=== PATIENT | female | born 1950 ===

== ENCOUNTER 2022-02-08 17:34 | Emergency (ER) | payer OTHER ==
--- OUTSIDE RECORDS SUMMARY | 2022-02-08 17:36 | XMS REPORT | Continuity of Care Document ---
:1950 Author Organization [facility] t Address [address] [place] [address] Dr. Goodson [address] [place] [address] Care Team Providers Name Role Phone JAVIER Attending Clinician Unavailable JAMES Attending Clinician Unavailable ALIA, KASSY Attending Clinician Unavailable Lab, Fam Pob I Attending Clinician Unavailable Moriah Madrigal Attending Clinician Moriah VEGA Attending Clinician Unavailable Doctor Unassigned, Name Attending Clinician Unavailable JAMES Admitting Clinician Unavailable Payers Payer Name Policy Type Policy Number Effective Date Expiration Date S ource [employer] MEDICARE PPO [id number] 2016 00:00:00 [employer] MEDICARE ADV [id number] 2016 00:00:00 Problems Condition Condition Condition Status Onset Resolution Last Treating Co mments Source Name Details Category Date Date Treatment Clinician Date No known No known Disease Unive rs active active ity of problems problems [facility] Allergies, Adverse Reactions, Alerts Allergy Allergy Status Severity Reaction(s) Onset Inactive Treating Comm ents Source Name Type Date Date Clinician NO KNOWN Drug Active Univers ALLERGIE Class ity of S [facility] Social History Social Habit Start Date Stop Date Quantity Comments Source Exposure to Not sure [facility] SARS-CoV-2 [facility] (event) [place] Sex Assigned At Universit y of [facility] Tobacco use and 2018-12-27 2018-12-27 Never used Universit y of exposure 00:00:00 00:00:00 [facility] Alcohol intake 2018-12-27 2018-12-27 Current drinker of Un iversity of 00:00:00 00:00:00 alcohol (finding) [facility] Tobacco Comment 2017-03-02 2017-03-02 Quit 38 years ago Un iversity of 00:00:00 00:00:00 [facility] Alcohol Comment 2017-03-02 2017-03-02 occasional Universit y of 00:00:00 00:00:00 [facility] Smoking Status Start Date Stop Date Source Former smoker 2018-12-27 00:00:00 2018-12-27 00:00:00 Universi ty of [facility] Medications Ordered Filled Start Stop Current Ordering Indication Dosage Frequency Signature Comments Components Source Medication Medication Date Date Medication? Clinician (SIG) Name Name methylPREDN Yes Univer s ISolone 4 4-25 ity of mg tablets 00:00: [facility] methylPREDN Yes Univer s ISolone 4 4-25 ity of mg tablets 00:00: [facility] azithromyci Yes Univer s n 250 mg 4-23 ity of tablet 00:00: [facility] benzonatate Yes Univer s 100 mg 4-23 ity of capsule 00:00: [facility] azithromyci Yes Univer s n 250 mg 4-23 ity of tablet 00:00: [facility] benzonatate Yes Univer s 100 mg 4-23 ity of capsule 00:00: [facility] BYSTOLIC 10 Yes Univer s mg tablet 4-19 ity of 00:00: [facility] BYSTOLIC 10 Yes Univer s mg tablet 4-19 ity of 00:00: [facility] amitriptyli 0 Yes Univer s ne 10 mg 4-02 ity of tablet 00:00: [facility] amitriptyli 0 Yes Univer s ne 10 mg 4-02 ity of tablet 00:00: [facility] ALPRAZolam 0 Yes TAKE 1 Unive rs 0.25 mg 2-22 TABLET BY ity of tablet 00:00: MOUTH 3 TIMES A Medical DAY IF Branch NEEDED FOR ANXIETY ALPRAZolam Yes TAKE 1 Unive rs 0.25 mg 2-22 TABLET BY ity of tablet 00:00: MOUTH 3 TIMES A Medical DAY IF Branch NEEDED FOR ANXIETY chlorhexidi Yes USE Univ ers ne 0.12 % 2-13 DIRECTED ity of mouthwash 00:00: [facility] chlorhexidi 0 Yes USE Univ ers ne 0.12 % 2-13 DIRECTED ity of mouthwash 00:00: 00 [facility] Er Procedures This patient has no known procedures. Encounters Start End Encounter Admission Attending Care Care Encounter Source Date/Time Date/Time Type Type Clinicians Facility Department ID 2021-04-12 Outpatient JAVIER [facility] [id number] [place] 16:48:17 [facility] 2022-01-26 2022-01-[address] [facility] [id number] [place] 00:00:00 00:00:00 NADIM 589 Method i 2022-01-24 2022-01-24 Outpatient JAMES [facility] [id number] [place] 00:00:00 00:00:00 NADIM 901 Method i 2021-04-23 2021-04-23 Outpatient R ALIA BERTHA [facility] [id number] Univers 14:00:00 14:00:00 [id number] ity [facility] 2021-04-23 2021-04-23 Outpatient R ALIA [facility] [id number] Univers 14:00:00 14:00:00 ity [facility] 2020-11-25 2020-11-25 Outpatient R [facility] [id number] Univers 13:45:00 13:45:00 [id number] ity [facility] 2020-11-25 2020-11-25 Outpatient R [facility] [id number] Univers 13:45:00 13:45:00 ity [facility] 2020-11-21 2020-11-21 Laboratory Lab, Adc [facility] Pob I [facility] [id number] Univers 13:39:26 13:59:26 Only Alexys Vega [facility] [id number] ity [facility] [id number] [place] Professio [phone] [place] [address] [address] 2020-11-21 2020-11-21 Outpatient R [facility] [id number] Univers 13:40:00 13:40:00 [id number] ity [facility] 2020-11-21 2020-11-21 Outpatient R GARY [facility] [id number] Univers 13:40:00 13:40:00 ALEXYS john f [facility] 2020-11-21 2020-11-21 Letter Doctor AMARA [id number] Univers 00:00:00 00:00:00 (Out) Unassigned, CELE[place] [id number] ity of [place] [facility] [id number] [place] as [phone] [address] Results Test Description Test Time Test Comments Results Result Comments Source SARS-CoV-2 (COVID-19) RNA [Presence] in Respiratory sp ecimen by 2022-01-24 17:38:58 SAVANNAH with probe detection Test Item Value Reference Range Interpretation Comme nts SARS-CoV-2 (COVID-19) RNA [Presence] in Respiratory specimen by Not detected SAVANNAH with probe detection (test code = 37462-9) Whether patient is employed in a healthcare setting (test code = Un known 12071-4) Whether the patient has symptoms related to condition of interest U nknown (test code = 78405-9) Whether the patient was hospitalized for condition of interest Unkn own (test code = 46760-9) Whether the patient was admitted to intensive care unit (ICU) for U nknown condition of interest (test code = 56474-7) Whether patient resides in a congregate care setting (test code = U nknown 30693-0) status (test code = 84436-0) Unknown Date and time of symptom onset (test code = 43332-4) Unknown
[2022-02-08] MEDS ORDERED: dilTIAZem HCL 25 MG/5 ML VIAL IV ONE (17:48)
[2022-02-08 18:02] LABS: Absolute Lymphocytes (CBC) 2.6 K/uL (0.7-4.9); Hematocrit 36.9 % (36.0-45.0); Lymphocytes % 41.9 % (15.3-44.8); MPV 8.9 fL (7.6-11.3); RBC Red Blood Cell Count 3.87 M/uL (3.86-4.86)
[2022-02-08 18:03] LABS: Protime INR 0.95
--- NOTE | 2022-02-08 18:14 | RAD REPORT ---
EXAM DESCRIPTION: RAD - Chest Single View - 02/08/2022 6:07 pm CLINICAL HISTORY: PALPITATIONS Chest pain. COMPARISON: Chest Pa And Lat (2 Views) dated 12/31/2017; CHEST SINGLE VIEW dated 05/21/2012; CHEST PA AND LAT 2 VIEW dated 02/15/2008; CHEST PA AND LAT 2 VIEW dated 12/18/1998 FINDINGS: Portable technique limits examination quality. The lungs are mildly emphysematous but grossly clear. The heart is normal in size. No displaced fract ures. IMPRESSION: Mild diffuse COPD.
[2022-02-08 18:23] LABS: Magnesium 2.3 mg/dL (1.8-2.4); Potassium 4.5 mmol/L (3.5-5.1)
--- NOTE | 2022-02-08 19:06 | ER ---
Nurse's Notes [facility] Name: Ofelia Dalton Age: 71 yrs Sex: Female : 1950 Arrival Date: 02/08/2022 Time: 17:35 Bed 5 Private MD: Amalia Cabrera C; Addison Hoover S Diagnosis: Supraventricular tachycardia Presentation: 02/08 17:50 Chief complaint: Patient states: had a cardiac ablation 2 weeks ago, today started iw having palpitations, heart rate is 130, was sent by Dr. Cabrera for eval. Coronavirus screen: At this time, the client does not indicate any symptoms associated with coronavirus-19. Ebola Screen: Patient negative for fever greater than or equal to 101.5 degrees Fahrenheit, and additional compatible Ebola Virus Disease symptoms Patient denies exposure to infectious person. Patient denies travel to an Ebola-affected area in the 21 days before illness onset. No symptoms or risks identified at this time. Initial Sepsis Screen: Does the patient meet any 2 criteria? No. Patient's initial sepsis screen is negative. Does the patient have a suspected source of infection? No. Patient's initial sepsis screen is negative. Risk Assessment: Do you want to hurt yourself or someone else? Patient reports no desire to harm self or others. Onset of symptoms was February 08, 2022. 17:50 Method Of Arrival: Wheelchair iw 17:50 Acuity: BLADE 2 iw Triage Assessment: 18:00 General: Appears in no apparent distress. Behavior is calm, cooperative, appropriate jh6 for age. Respiratory: the patient has mild shortness of breath. 18:00 Pain: Denies pain. jh6 18:05 General: Appears. 6 Historical: - Allergies: 18:06 No Known Allergies; jh6 - PMHx: 18:06 Supraventricular tachycardia; jh6 - Immunization history:: Adult Immunizations up to date. - Social history:: Smoking status: Patient denies any tobacco usage or history of. Screenin:00 Abuse screen: Denies threats or abuse. jh6 18:00 Nutritional screening: No deficits noted. Tuberculosis screening: No symptoms or risk 6 factors identified. Fall Risk Secondary diagnosis (15 points) STV WITH HYPOTENSION. Assessment: 18:00 General: Appears in no apparent distress. comfortable, Behavior is calm, cooperative. jh6 18:00 Pain: Denies pain. Neuro: No deficits noted. Cardiovascular: Capillary refill < 3 jh6 seconds Patient's skin is warm and dry. Rhythm is SVT. Respiratory: No deficits noted. Airway is patent Respiratory effort is even, unlabored, Respiratory pattern is regular. 18:44 Reassessment: No changes from previously documented assessment. Patient denies pain at jh6 this time. Respiratory: No deficits noted. Breath sounds are clear. 19:15 Reassessment: Patient appears in no apparent distress at this time. Patient is alert, lp1 oriented x 3, equal unlabored respirations, skin warm/dry/pink. Patient aware of pending discharge, Reports plan with follow up with Integration Assistant tomorrow Patient denies pain at this time. Patient states feeling better. Patient states symptoms have improved. 20:15 Reassessment: Patient appears in no apparent distress at this time. Patient is alert, lp1 oriented x 3, equal unlabored respirations, skin warm/dry/pink. Patient expresses readiness for discharge; Walked with patient around ED department, denied chest pain, shortness of breath, dizziness, weakness; Pulse oximeter with pulse of 68 while walking, O2 at 97% RA. Vital Signs: 17:50 BP 97 / 65; Pulse 130; Resp 18; Temp 97.6; Pulse Ox 100% on R/A; Weight 52.16 kg; jh6 Height 5 ft. 5 in. (165.10 cm); Pain 0/10; 18:00 BP 93 / 62; Pulse 44; Resp 18; Pulse Ox 100% ; jh6 18:30 BP 92 / 38; Pulse 40; Resp 17; Pulse Ox 100% on 2 lpm NC; jh6 19:15 BP 115 / 60; Pulse 50; Resp 15; Pulse Ox 99% on R/A; Pain 0/10; lp1 19:30 BP 100 / 58; Pulse 42; Resp 20; Pulse Ox 100% on R/A; lp1 19:45 BP 91 / 57; Pulse 41; Resp 18; Pulse Ox 100% on R/A; lp1 20:18 BP 104 / 75; Pulse 66; Resp 18; Pulse Ox 97% on R/A; lp1 17:50 Body Mass Index 19.14 (52.16 kg, 165.10 cm) jh6 20:18 While back in room after walking with patient lp1 Vitals: 18:00 Cardiac Rhythm Assessment Regular Sinus [place] W/PAC's. [facility] ED Course: 17:35 Patient arrived in ED. as 17:35 Amalia Cabrera MD is Private Physician. as 17:35 Dashawn Ferguson MD is Private Physician. as 17:35 Addison Hoover MD is Private Physician. as 17:46 [facility] jr8 17:46 Stefano Ashley MD is Attending Physician. [facility] 17:51 Triage completed. iw 17:51 Arm band placed on. iw 17:55 EKG done, by ED staff, reviewed by Stefano Ashley MD. Inserted saline lock: 20 gauge in [facility] right antecubital area, using aseptic technique. Blood collected. 18:02 Shwetha Villalpando, LEANDRO is Primary Nurse. [facility] 18:09 XRAY Chest (1 view) In Process Unspecified. EDKS 18:19 Bed in low position. Call light in reach. Side rails up X2. [facility] 19:05 Andrew Cabrera MD is Referral Physician. sp3 19:32 No provider procedures requiring assistance completed. lp1 20:21 IV discontinued, No redness/swelling at site. Pressure dressing applied. lp1 Administered Medications: 17:50 Drug: Cardizem (diltiazem) 10 mg Route: IVP; Site: right antecubital; [facility] 18:11 Follow up: Response: Cardiac rhythm changed [facility] Outcome: 19:06 Discharge ordered by MD. sp3 20:21 Discharged to home ambulatory, with significant other. lp1 20:21 Condition: good 20:21 Discharge instructions given to patient, significant other, Instructed on discharge instructions, follow up and referral plans. Demonstrated understanding of instructions, follow-up care. 20:21 Patient left the ED. lp1 Signatures: Dispatcher [employer] EDMS Obdulia Hamilton Irene, LEANDRO RN Lia Constantino RN RN lp1 Reuben Martin PA PA [facility] Stefano Ashley MD MD sp3 Shwetha Villalpando, LEANDRO RN [facility] Corrections: (The following items were deleted from the chart) 20:21 20:18 BP 104 / 75; Pulse 66bpm; Resp 18bpm; Pulse Ox 97% RA; lp1 lp1
--- NOTE | 2022-02-08 19:06 | EDPHYS ---
Physician Documentation [facility] Name: Ofelia Dalton Age: 71 yrs Sex: Female : 1950 Arrival Date: 02/08/2022 Time: 17:35 Bed 5 Private MD: Amalia Cabrera C; Addison Hoover S ED Physician Stefano Ashley HPI: 02/08 17:58 This 71 yrs old Female presents to ER via Wheelchair with complaints of Palpitations, sp3 Shortness Of Breath. 17:58 89-year-old female presents to the ED referred by her primary care physician for SVT. sp3 Patient had a cardiac ablation done at the [facility] approximately 2 weeks ago and has not had any complications since then. Patient today missed her initial Bystolic dose and consumed 2 cups of coffee after which she noticed her heart rate was elevated. She was not able to contact her leadite heater after which she presented to her PCPs office Dr. Cabrera who advised her to return to the ED here for treatment. Patient does have an appointment with her local leadite heater in the morning. She stated that she has had mild chest pressure during the SVT but otherwise no pain, shortness of breath, back pain, nausea, vomiting, diarrhea, or any other ROS at this time.. Historical: - Allergies: 18:06 No Known Allergies; jh6 - PMHx: 18:06 Supraventricular tachycardia; 6 - Immunization history:: Adult Immunizations up to date. - Social history:: Smoking status: Patient denies any tobacco usage or history of. ROS: 18:01 Constitutional: Negative for fever, chills, and weight loss, Eyes: Negative for injury, sp3 pain, redness, and discharge, ENT: Negative for injury, pain, and discharge, Neck: Negative for injury, pain, and swelling, Respiratory: Negative for shortness of breath, cough, wheezing, and pleuritic chest pain, Abdomen/GI: Negative for abdominal pain, nausea, vomiting, diarrhea, and constipation, Back: Negative for injury and pain, MS/Extremity: Negative for injury and deformity, Skin: Negative for injury, rash, and discoloration, Neuro: Negative for headache, weakness, numbness, tingling, and seizure, Psych: Negative for depression, anxiety, suicide ideation, homicidal ideation, and hallucinations, Allergy/Immunology: Negative for hives, rash, and allergies, Endocrine: Negative for neck swelling, polydipsia, polyuria, polyphagia, and marked weight changes. 18:01 All other systems are negative. Exam: 18:06 Constitutional: This is a well developed, well nourished patient who is awake, alert, sp3 and in no acute distress. Head/Face: Normocephalic, atraumatic. Eyes: Pupils equal round and reactive to light, extra-ocular motions intact. Lids and lashes normal. Conjunctiva and sclera are non-icteric and not injected. Cornea within normal limits. Periorbital areas with no swelling, redness, or edema. ENT: Nares patent. No nasal discharge, no septal abnormalities noted. External auditory canals are clear. Oropharynx with no redness, swelling, or masses, exudates, or evidence of obstruction, uvula midline. Mucous membranes moist. Neck: Trachea midline, no thyromegaly or masses palpated, and no cervical lymphadenopathy. Supple, full range of motion without nuchal rigidity, or vertebral point tenderness. No Meningismus. Chest/axilla: Normal chest wall appearance and motion. Nontender with no deformity. No lesions are appreciated. Respiratory: Lungs have equal breath sounds bilaterally, clear to auscultation and percussion. No rales, rhonchi or wheezes noted. No increased work of breathing, no retractions or nasal flaring. Abdomen/GI: Soft, non-tender, with normal bowel sounds. No distension or tympany. No guarding or rebound. No evidence of tenderness throughout. Back: No spinal tenderness. No costovertebral tenderness. Full range of motion. Skin: Warm, dry with normal turgor. Normal color with no rashes, no lesions, and no evidence of cellulitis. MS/ Extremity: Pulses equal, no cyanosis. Neurovascular intact. Full, normal range of motion. Neuro: Awake and alert, GCS 15, oriented to person, place, time, and situation. Cranial nerves II-XII grossly intact. Motor strength 5/5 in all extremities. Sensory grossly intact. Cerebellar exam normal. Normal gait. 18:06 Cardiovascular: Patient in a regular supraventricular tachycardia. . 18:28 ECG was reviewed by the Attending Physician. ECG taken at 1739 demonstrates sp3 supraventricular tachycardia in a regular rhythm at 176 bpm. ECG taken at 1746 after the 10 mg of Cardizem demonstrates sinus bradycardia at [address]/T changes without evidence of acute ischemia. Vital Signs: 17:50 BP 97 / 65; Pulse 130; Resp 18; Temp 97.6; Pulse Ox 100% on R/A; Weight 52.16 kg; jh6 Height 5 ft. 5 in. (165.10 cm); Pain 0/10; 18:00 BP 93 / 62; Pulse 44; Resp 18; Pulse Ox 100% ; jh6 18:30 BP 92 / 38; Pulse 40; Resp 17; Pulse Ox 100% on 2 lpm NC; jh6 19:15 BP 115 / 60; Pulse 50; Resp 15; Pulse Ox 99% on R/A; Pain 0/10; lp1 19:30 BP 100 / 58; Pulse 42; Resp 20; Pulse Ox 100% on R/A; lp1 19:45 BP 91 / 57; Pulse 41; Resp 18; Pulse Ox 100% on R/A; lp1 20:18 BP 104 / 75; Pulse 66; Resp 18; Pulse Ox 97% on R/A; lp1 17:50 Body Mass Index 19.14 (52.16 kg, 165.10 cm) [facility] 20:18 While back in room after walking with patient lp1 MDM: 17:47 Patient medically screened. 8 18:07 Data reviewed: vital signs, nurses notes. ED course: -year-old female in sp3 supraventricular tachycardia. Patient did have 2 doses of Bystolic this morning after her SVT started. Patient was given Cardizem 10 mg IV which broke her SVT into a sinus bradycardia in the 38 to 45 bpm range. Blood pressure remains in the 90s systolically. Patient did have mild dizziness which is resolved and her chest pressure is also resolved. Patient is now completely asymptomatic resting comfortably. We will observe patient to ensure heart rate stays in the upper 40s to low 50s prior to discharge while she awaits her laboratory values including troponin level. Patient does have follow-up with her leadite heater in the morning and we will likely discharge her pending verification of continued stabilization.. 18:27 ED course: Laboratory values and chest x-ray are normal. Once heart rate normalizes a sp3 bit more, we will discharge patient home.. 02/08 17:47 Order name: Basic Metabolic Panel; Complete Time: 18:26 6 02/08 17:47 Order name: CBC with Diff; Complete Time: 18:26 02/08 17:47 Order name: Troponin HS; Complete Time: 18:26 02/08 17:47 Order name: Basic Metabolic Panel 02/08 17:47 Order name: CBC with Diff 02/08 17:47 Order name: Magnesium; Complete Time: 18:26 [facility] 02/08 17:47 Order name: XRAY Chest (1 view); Complete Time: 18:26 02/08 17:47 Order name: EKG; Complete Time: 17:47 02/08 17:47 Order name: NT PRO-BNP; Complete Time: 18:26 02/08 17:47 Order name: PT-INR; Complete Time: 18:26 02/08 17:47 Order name: Troponin HS 02/08 17:47 Order name: EKG; Complete Time: 17:48 02/08 17:47 Order name: Cardiac monitoring; Complete Time: 17:47 02/08 17:47 Order name: EKG - Nurse/Tech; Complete Time: 17:47 02/08 17:47 Order name: IV Saline Lock; Complete Time: 17:47 02/08 17:47 Order name: Labs collected and sent; Complete Time: 17:47 02/08 17:47 Order name: O2 Per Protocol; Complete Time: 17:47 02/08 17:47 Order name: O2 Sat Monitoring; Complete Time: 19:33 02/08 17:47 Order name: Cardiac monitoring; Complete Time: 19:33 02/08 17:47 Order name: EKG - Nurse/Tech; Complete Time: 18:08 02/08 17:47 Order name: IV Saline Lock; Complete Time: 18:08 02/08 17:47 Order name: Labs collected and sent; Complete Time: 18:08 02/08 17:47 Order name: O2 Per Protocol; Complete Time: 18:08 02/08 17:47 Order name: O2 Sat Monitoring; Complete Time: 18:09 8 Administered Medications: 17:50 Drug: Cardizem (diltiazem) 10 mg Route: IVP; Site: right antecubital; [facility] 18:11 Follow up: Response: Cardiac rhythm changed [facility] Disposition Summary: 02/08/22 19:06 Discharge Ordered Location: Home sp3 Condition: Stable sp3 Diagnosis - Supraventricular tachycardia sp3 Followup: sp3 - With: Andrew Cabrera MD - When: Upon discharge from the Emergency Department - Reason: Continuance of care Discharge Instructions: - Discharge Summary Sheet sp3 - Supraventricular Tachycardia, Adult sp3 Forms: - Medication Reconciliation Form sp3 - Thank You Letter sp3 - Antibiotic Education sp3 - Prescription Opioid Use sp3 Signatures: Dispatcher [employer] EDMS Reuben Martin PA PA jr8 Stefano Ashley MD MD sp3 Shwetha Villalpando RN RN 6 Corrections: (The following items were deleted from the chart) 18:08 17:48 Chest Single View+RAD.RAD.BRZ ordered. EDMS EDMS
--- NOTE | 2022-02-09 07:11 | EKG ---
Test Date: 2022-02-08 Test Time: 17:46:48 Chief Nursing Officer: EMILY MEASUREMENT RESULTS: Intervals: Rate: 47 [place]: 134 QRSD: 76 QT: 402 QTc: 355 [place]: P: 57 [place]: 134 QRS: 24 T: 41 INTERPRETIVE STATEMENTS: Sinus bradycardia with premature atrial complexes Low voltage QRS Cannot rule out Anterior infarct, age undetermined Abnormal ECG Compared to ECG 02/08/2022 17:39:25 Atrial premature complex(es) now present Myocardial infarct finding now present Supraventricular tachycardia no longer present Ventricular premature complex(es) no longer present ST (T wave) deviation no longer present Electronically Signed On 02-09-22 07:09:34 CDT by Addison Hoover
--- NOTE | 2022-02-09 07:12 | EKG ---
Test Date: 2022-02-08 Test Time: 17:39:25 Fish Packer: EMILY MEASUREMENT RESULTS: Intervals: Rate: 176 MS: QRSD: 70 QT: 296 QTc: 506 [place]: P: MS: QRS: -25 T: 48 INTERPRETIVE STATEMENTS: Supraventricular tachycardia with frequent premature ventricular complexes Low voltage QRS Nonspecific ST and T wave abnormality Abnormal ECG Compared to ECG 08/31/2017 07:46:57 Ventricular premature complex(es) now present Low QRS voltage now present ST (T wave) deviation now present Sinus bradycardia no longer present Electronically Signed On 02-09-22 07:09:35 CDT by Addison Hoover
[2022-02-09 11:59] VITALS: TEMP 97.6
[2022-02-09 12:10] VITALS: BP 104/75; O2SAT 97
== END 2022-02-08 20:21 | disposition home or self-care (01) ==
LOC: ER 17:34
DX: I47.1 Supraventricular tachycardia (principal); Z98.890 Other specified postprocedural states
CPT/HCPCS: 36415; 71045; 80048; 83735; 83880; 84484; 85025; 85610; 93005; 96374; 99284